=== PATIENT | female | born 1965 | race Caucasian/White ===

== ENCOUNTER → 2024-05-05 | Outpatient (CLI) | payer BC ==
[2024-05-05 12:47] LABS: African American GFR (CKD) >90 (>60 ml/min/1.73 sqM); Blood Urea Nitrogen 6 mg/dL (7-17); Non-African American GFR(CKD) >90 (>60 ml/min/1.73 sqM)
--- NOTE | 2024-05-05 18:18 | CT ---
EXAMINATION TYPE: CT angio abdomen pelvis CT DLP: 1047.60 mGycm, Automated exposure control for dose reduction was used. DATE OF EXAM: 05/05/2024 2:06 PM COMPARISON:None CLINICAL INDICATION:Female, 58 years old with history of I70.92 arterial occlusion; arterial occlusio n TECHNIQUE: Multiple thin slice sub-millimeter images were obtained through the abdomen and pelvis bef ore and after administration of contrast. Patient was given Isovue 370, 100 cc intravenously. 3-D r econstructed images and maximum intensity projection images were obtained of the abdominal aorta and its branches. FINDINGS: CTA Abdomen and pelvis: The abdominal aorta does not demonstrate aneurysmal dilatation. Atherosclero tic plaquing is identified within the abdominal aorta. There is severe stenosis involving the distal abdominal aorta and its bifurcation secondary to calcified plaque. The origins of the superior mesenteric artery, renal arteries, inferior mesenteric artery, and celiac axis are patent. Moderate stenosis of the origin the left renal artery secondary to calcified plaque . Mild stenosis at the origin of the right renal artery secondary to calcified plaque. Atheroscleroti c plaquing with some mural thrombus formation is identified in the common iliac arteries. Moderate t o severe stenosis at the origins of the bilateral common iliac artery secondary to calcified plaque. The visualized bilateral internal and external iliac arteries are patent. The visualized bilateral co mmon femoral arteries are patent. The visualized portions of the bilateral superficial and deep femor al arteries are patent. There is a filling defect identified within the distal right common femoral a rtery just before the bifurcation representing noncalcified plaque. VISCERA: The liver, spleen, adrenal glands, kidneys, pancreas, and gallbladder are not optimally enha nced due the arterial phase utilized. LIVER: Unremarkable GALLBLADDER AND BILE DUCTS: Unremarkable. PANCREAS: Unremarkable. SPLEEN: Unremarkable. ADRENAL GLANDS: Thickening of the bilateral adrenal glands likely related to adrenal hyperplasia.. KIDNEYS AND URETERS: No evidence of hydronephrosis. No left renal calculi. Punctate nonobstructive ri ght renal calculus. Kidneys enhance symmetrically. PELVIS BLADDER: Incompletely distended but grossly unremarkable. REPRODUCTIVE: Unremarkable. ABDOMEN & PELVIS STOMACH AND BOWEL: Stomach and duodenum are unremarkable. Distal colonic diverticulosis without evide nce for acute diverticulitis. No focal bowel wall thickening or stranding inflammatory changes. The a ppendix is within normal limits. No evidence of bowel obstruction. PERITONEUM: No evidence of pneumoperitoneum or free fluid. MUSCULOSKELETAL: No acute osseous abnormalities. Degenerative changes of the pubic symphysis. Multile frida degenerative disc disease. Mild retrolisthesis of L2 on L3. LYMPH NODES: No evidence for lymphadenopathy. SOFT TISSUE/ABDOMINAL WALL: Diffuse anasarca. Left gluteal 3.3 cm superficial lesion possibly represe nting a sebaceous cyst. Correlate clinically. LOWER CHEST: Minimal bilateral lower lobe dependent subsegmental atelectasis. Additional linear atele ctasis within the left lower lobe. Cardiomegaly. Dense mitral annulus calcifications. IMPRESSION 1. Severe stenosis/near complete occlusion of the distal abdominal aorta at the bifurcation secondar y to calcified plaque. Additional severe stenosis of the origins of the bilateral common iliac arteri es secondary to calcified plaque. No definitive vascular occlusion at this time. Vascular surgery con sultation is recommended. 2. Colonic diverticulosis without evidence for acute diverticulitis. 3. Nonobstructive punctate right renal calculus. [facility], , 05/05/2024 6:16 PM
== END | disposition home or self-care (01) ==
LOC: RADCTMAIN 12:03
PROVIDERS: ATTEND Surgery
DX: N20.0 Calculus of kidney (principal); I70.92 Chronic total occlusion of artery of the extremities; I70.0 Atherosclerosis of aorta; K57.30 Diverticulosis of large intestine without perforation or abscess without bleeding; I51.7 Cardiomegaly
CPT/HCPCS: 82565; 84520; 36415; 74174; Q9967

== ENCOUNTER → 2024-06-12 | Day surgery (SDC) | payer BC ==
[~2024-06-12] MED LIST: ALPRAZolam 0.25 MG TAB PO PRN; ALPRAZolam 0.5 MG TAB PO PRN; ASPIRIN 325 MG TAB PO PRN; HEPARIN SODIUM,PORCINE (1 ML) 2,500 UNIT in SODIUM CHLORIDE 0.9% 250 ML IRRIGATION PRN; SODIUM CHLORIDE 0.9% 1,000 ML in EMPTY BAG 1 BAG IV ONE; ZOLPIDEM 5 MG TAB PO PRN
[2024-06-12] MEDS: SODIUM CHLORIDE 0.9% 1,000 ML IV ONE (07:15)
[2024-06-12 08:10] LABS: Basophils % (A) 1 %; Eosinophils # (A) 0.2 k/uL (0-0.7); Eosinophils % (A) 3 %; HCT 41.9 % (34.0-46.0); HGB 13.5 gm/dL (11.4-16.0); Lymphocytes # (A) 2.3 k/uL (1.0-4.8); Lymphocytes % (A) 40 %; MCHC 32.1 g/dL (31.0-37.0); MCV 105.9 fL (80.0-100.0); Macrocytosis Slight; Mean Platelet Volume 7.2; Monocytes # (A) 0.5 k/uL (0-1.0); Monocytes % (A) 9 %; Neutrophils # (A) 2.6 k/uL (1.3-7.7); Neutrophils % (A) 45 %; Platelet Count 273 k/uL (150-450); RBC 3.96 m/uL (3.80-5.40); RDW 12.9 % (11.5-15.5); WBC 5.8 k/uL (3.8-10.6)
[2024-06-12 08:19] LABS: African American GFR (CKD) >90 (>60 ml/min/1.73 sqM); Anion Gap 9 mmol/L; Blood Urea Nitrogen 4 mg/dL (7-17); Calcium 9.3 mg/dL (8.4-10.2); Carbon Dioxide 29 mmol/L (22-30); Chloride 101 mmol/L (98-107); Glucose 88 mg/dL (74-99); Non-African American GFR(CKD) >90 (>60 ml/min/1.73 sqM); Potassium 3.9 mmol/L (3.5-5.1); Sodium 139 mmol/L (137-145)
[2024-06-12] MEDS: fentaNYL (PF) 50 MCG/1 ML VIAL IVP ONE ×2 (09:47→12:01)
[2024-06-12] MEDS: MIDAZOLAM 2 MG/2 ML VIAL IVP ONE ×4 (09:47→12:07)
[2024-06-12] MEDS: LIDOCAINE 1% INJ 10MG/ML (20 ML MDV) SQ ONE (09:48)
[2024-06-12] MEDS: HEPARIN SODIUM,PORCINE 10,000 UNIT in SODIUM CHLORIDE 0.9% 1,000 ML IRRIGATION PRN (09:52)
[2024-06-12] MEDS: IOPAMIDOL-370 100ML BTL INJ ONE (10:17)
[2024-06-12] MEDS: HEPARIN SODIUM 1,000 UN/ML (10ML VL) IVP ONE (10:20)
[2024-06-12] MEDS: PROTAMINE SULFATE 10 MG/ML 5 ML VIAL IVPB ONE (12:08)
--- NOTE | 2024-06-12 12:33 | P.OP ---
Date of Procedure: 06/12/24 Preoperative Diagnosis: Aortoiliac occlusive disease Postoperative Diagnosis: Aortoiliac occlusive disease Distal aortic stenosis greater than 90% Severe bilateral iliac artery calcification and stenosis Procedure(s) Performed: Ultrasound-guided bilateral common femoral artery access Aortogram with bilateral selective iliac angiograms Percutaneous transluminal balloon angioplasty with lithotripsy of the distal aorta with shockwave 7 x 60 mm balloon Percutaneous transluminal balloon angioplasty with lithotripsy of the right common iliac artery 6 x 60 mm shockwave balloon Percutaneous transluminal balloon angioplasty with lithotripsy of the left com mon iliac artery 7 x 60 mm shockwave balloon Endovascular aortic stenting with AFX stent graft at the distal aorta and bilateral iliac arteries Percutaneous closure of the bilateral femoral arteries with Perclose on the right x 2 and Vascade on the left Conscious sedation x 2 hours and 15 minutes Anesthesia: local Surgeon: Owen Sam Power Brake Operator #1: Sharri Velazquez Estimated Blood Loss (ml): 50 Pathology: none sent Condition: stable Disposition: PACU Indications for Procedure: 58-year-old female with history of bilateral lower extremity claudication with previous angiogram attempt per her odd piece checker through the groin which was unsuccessful due to severe calcification and underwent angiogram that demonstrated greater than 90% stenosis of the distal aorta. ABIs were diminished bilaterally measuring less than 0.7. CT angiogram was obtained demonstrating severe occlusion with large calcific disease within the distal aorta and proximal iliac arteries. She presents today for attempt at revascularization and stenting of the distal aorta and iliac arteries. Operative Findings: Dense calcification with large calcific lesions within the distal aorta and prox imal common iliac arteries Description of Procedure: After written and informed consent was obtained the patient all risks benefits and complications were described the patient is brought to the Non Destructive Testing Inspector and laid in the supine position. The area of the groins were prepped and draped in usual sterile fashion after appropriate anesthetic was performed per the anesthesiolog ist. A timeout was performed in normal fashion antibiotics were administered prior to accessed. Under ultrasound guidance bilateral common femoral arteries were accessed and utilizing Seldinger technique a 6-Senegalese sheath was placed in the bilateral femoral arteries. The patient was then administered heparin and followed with serial ACTs for appropriate heparinization. 035 Glidewire was then placed with attempt at crossing the distal aortic lesion after bilateral selective angiograms were obtained demonstrating severe 90% or greater stenosis bilaterally. With use of a crossing catheter and the 035 Glidewire the right iliac artery was crossed into the aorta and aortogram was obtained demonstrating good intraluminal access. Left-sided common iliac artery was severely occluded and wire was placed in an up and over fashion and then utilizing an angled crossing catheter the aorta was entered across the lesion. Catheter was then placed and angiogram was obtained demonstrating good intraluminal access. At this time balloon angioplasty of the distal aorta and bilateral common iliac arteries was performed with shockwave balloon x 2. 014 wires were exchanged prior to placement of the shockwave balloons. After multiple lithotripsy and balloon angioplasties were performed of the bilateral iliacs and distal aorta the wires were then exchanged again for 035 and aortogram was obtained above the lesion with an RBI catheter. Improved flow was noted through both common iliac arteries with dense calcification still noted at the distal aspect and proximal aspect of the aorta and iliac respectively. Attention was then placed to performing the AFX graft. 035 Amplatz wire was then placed up the right due to the tortuosity and 2 Perclose closure devices were placed in the right femoral artery followed by an 8-Senegalese sheath. 035 Glidewire was then placed through the 8-[place]eg[place]e sheath and replaced with a stiff Lunderquist wire through a crossing catheter. 035 guidewire was then placed in the 6-[place]e sheath and the sheath was exchanged for a long 45 cm sheath that was placed above the aortic bifurcation. The 8-[place]e sheath was then removed and 19-Seneg[place]e AFX introducer sheath was guided over the stiff wire to the area above the bifurcation. A 22 x 60 x 13 x 40 AFX2 bifurcated device was then guided onto the stiff wire. The contralateral wire was then placed and through the 6-[place]e sheath it was then snared and brought out to the contralateral 6-[place]eg[place]e sheath. The main body of the AFX was then advanced to above the bifurcation in normal fashion and deployed above the bifurcation ultimately then pulled down to the bifurcation. Once main body was deployed attention was then placed to the contralateral limb which was deployed by removing the yellow loop cover. A 5 x 40 mm balloon was then placed over the wire and distal aspect of the iliac limb was ballooned and then the catheter was advanced and the contralateral wire was unlocked. A wire was then placed up the contralateral limb. The ipsilateral limb was then obtained and the inner core and retracting AFX introducer sheath to deployed the ipsilateral limb. This inner deployment was removed and the obturator was placed and the sheath was then advanced through the above the renal arteries. Balloon angioplasty was then performed of bilateral limbs as well as the aorta with a 14 x 40 mm balloon and 9 x 40 mm balloon for the left iliac limb. Final angiogram was obtained demonstrating good seal with resolution of the stenosis and brisk flow down bilateral femoral arteries. All guidewires and catheters were then removed and the Perclose closure device was utilized for hemostasis for the ipsilateral femoral artery. A Vascade was then placed through the 6- [place]e sheath for hemostasis in normal fashion. Once hemostatic the areas were then cleansed and dressings were placed. The patient tolerated the procedure well and had palpable DP pulses at the conclusion of the procedure. He was then sent to PACU for recovery.
[2024-06-12 16:09] VITALS: BP 136/58; PULSE 71; RESP 18
--- NOTE | 2024-06-15 09:38 | IR ---
EXAMINATION TYPE: IR angio abdominal w runoff DATE OF EXAM: 06/13/2024 FLUOROSCOPY LEG PAIN, 44.2min 178DAP Catheter angiography with intervention 349 images are submitted. [facility], , 06/15/2024 9:35 AM
== END | disposition home or self-care (01) ==
LOC: CATHCVL 07:09
PROVIDERS: ATTEND Surgery
DX: I74.09 Other arterial embolism and thrombosis of abdominal aorta (principal); I35.0 Nonrheumatic aortic (valve) stenosis; F10.90 Alcohol use, unspecified, uncomplicated; F17.200 Nicotine dependence, unspecified, uncomplicated; Z88.0 Allergy status to penicillin
CPT/HCPCS: 37236; 80048; 85025; 99152; C1769 ×5; C1894 ×6; C1733; C1725 ×4; C1887; C1760 ×2; C9765; J2250; J2720; J1644 ×2; J0690; J2003; Q9967; J3010; 37221